=== PATIENT | female | born 1995 | race Caucasian/White ===

== ENCOUNTER 2017-08-10 13:05 | Emergency (ER) | payer OTHER | END 2017-08-10 14:38 | disposition home or self-care (01) | LOC: E/R 13:05 | DX: J34.89 Other specified disorders of nose and nasal sinuses (principal) | CPT/HCPCS: 99284 ==

== ENCOUNTER 2017-11-18 17:41 | Emergency (ER) | payer OTHER | END 2017-11-18 22:50 | disposition home or self-care (01) | LOC: FTE 17:41 | DX: S99.922A Unspecified injury of left foot, initial encounter (principal); X58.XXXA Exposure to other specified factors, initial encounter; Y92.9 Unspecified place or not applicable | CPT/HCPCS: 73590; 73630-LT; 99283-25 ==

== ENCOUNTER 2018-10-14 00:04 | Emergency (ER) | payer OTHER | END 2018-10-14 03:26 | disposition home or self-care (01) | LOC: FTE 03:26 | DX: J03.90 Acute tonsillitis, unspecified (principal); B37.0 Candidal stomatitis | CPT/HCPCS: 99283; Z7502 ==

== ENCOUNTER 2018-12-25 03:13 | Emergency (ER) | payer OTHER ==
[2018-12-25] MEDS: SOD CHLORIDE 0.9% 1,000 ML IV (04:31)
[2018-12-25 04:33] LABS: ADD MAN DIFF? NO
[2018-12-25 04:34] LABS: WHITE BLOOD COUNT 9.5 10^3/ul (4.8-10.8)
[2018-12-25 04:34] LABS: ABNORMAL IP MESSAGE 1; BASOPHILS % 0.1 % (0.0-2.0); EOSINOPHILS % 0.2 % (0.0-7.0); HEMATOCRIT 42.5 % (37.0-47.0); LYMPHOCYTES # 0.6 10^3/ul (0.8-2.9); LYMPHOCYTES % 6.2 % (15.0-51.0); MEAN CORPUSCULAR HEMOGLOBIN 27.9 pg (29.0-33.0); MEAN CORPUSCULAR HGB CONC 32.9 g/dl (32.0-37.0); MEAN CORPUSCULAR VOLUME 84.8 fl (82.0-101.0); MEAN PLATELET VOLUME 11.1 fl (7.4-10.4); MONOCYTE # 0.4 10^3/ul (0.3-0.9); MONOCYTES % 3.8 % (0.0-11.0); NEUTROPHIL # 8.5 10^3/ul (1.6-7.5); NEUTROPHILS % 89.5 % (39.0-77.0); PLATELET COUNT 278 10^3/UL (140-415); RED BLOOD COUNT 5.01 10^6/ul (4.20-5.40); RED CELL DISTRIBUTION WIDTH 14.1 % (11.5-14.5)
[2018-12-25] MEDS: ONDANSETRON 4 MG INJ IV (04:34)
[2018-12-25 04:37] LABS: POSITIVE DIFF @See below
[2018-12-25 04:54] LABS: ALANINE AMINOTRANSFERASE 22 IU/L (13-69); ALBUMIN 4.7 g/dl (3.3-4.9); ALKALINE PHOSPHATASE 85 IU/L (42-121); ANION GAP 13 (5-13); ASPARTATE AMINO TRANSFERASE 22 IU/L (15-46); BILIRUBIN,INDIRECT 0.9 mg/dl (0-1.1); BILIRUBIN,TOTAL 0.9 mg/dl (0.2-1.3); BLOOD UREA NITROGEN 8 mg/dl (7-20); CALCIUM 9.6 mg/dl (8.4-10.2); CARBON DIOXIDE 26 mmol/L (21-31); CHLORIDE 103 mmol/L (97-110); CREATININE 0.72 mg/dl (0.44-1.00); Estimated GFR > 60 mL/min (>60); GLUCOSE 117 mg/dl (70-220); LIPASE 55 U/L (23-300); POTASSIUM 4.1 mmol/L (3.5-5.1); SODIUM 142 mmol/L (135-144); TOTAL PROTEIN 8.3 g/dl (6.1-8.1)
[2018-12-25 05:26] LABS: ADD UMIC YES; UR ASCORBIC ACID NEGATIVE (NEGATIVE); UR BILIRUBIN (Dip) NEGATIVE (NEGATIVE); UR BLOOD (Dip) 1+ mg/dL (NEGATIVE); UR CLARITY SLIGHTLY CLOUDY (CLEAR); UR COLOR YELLOW (YELLOW); UR GLUCOSE (Dip) NEGATIVE (NEGATIVE); UR KETONES (Dip) 1+ mg/dL (NEGATIVE); UR LEUKOCYTE ESTERASE (Dip) NEGATIVE Leu/ul (NEGATIVE); UR MUCUS FEW /HPF (NONE SEEN); UR NITRITE (Dip) NEGATIVE (NEGATIVE); UR RBC 1 /HPF (0-5); UR SPECIFIC GRAVITY (Dip) 1.027 (1.003-1.030); UR SQUAMOUS EPITHELIAL CELL FEW /HPF (FEW); UR TOTAL PROTEIN (Dip) 1+ mg/dl (NEGATIVE); UR UROBILINOGEN (Dip) 2+ mg/dL (NEGATIVE); UR WBC 1 /HPF (0-5)
== END 2018-12-25 05:56 | disposition home or self-care (01) ==
LOC: FTE 03:13
DX: K52.9 Noninfective gastroenteritis and colitis, unspecified (principal)
CPT/HCPCS: 36415; 80053; 81001; 81025; 83690; 85025; 96374; 99284-25